=== PATIENT | male | born 1940 | race Caucasian/White ===

== ENCOUNTER 2021-03-30 12:09 | Inpatient (IN) | payer MEDICARE, OTHER ==
[2021-03-30] MEDS ORDERED: Polyethylene Glycol 3350 Powder 17 GM Packet PO PRN (14:49)
[2021-03-30] MEDS: Acetaminophen/oxyCODONE 325-5 MG Tab PO PRN ×2 (15:20→21:17)
--- NOTE | 2021-03-30 15:28 | PCM.HP.2 ---
H&P History of Present Illness - General Date of Service: 03/30/21 Admit Problem/Dx: Admission Diagnosis/Problem Admission Diagnosis/Problem Weakness Source of Information: Patient, Old Records, Provider History Limitations: Reports: No Limitations - History of Present Illness Initial Comments - Free Text/Narative: Breezy is POD#5 from triple cardiac bypass surgery with Dr Isma GODINEZ at [facility] on 03/25. He had an abnormal stress test on 03/13/2021. He had multivessel coronary artery disease involving distal left main, occluded LAD, high-grade left circumflex and 90% stenosis of mid RCA. He was extubated shortly after surgery. Mediastinal chest tubes were removed POD#1, pleural chest tubes removed when there was minimal drainage. He progressed well with therapy at [facility], and presents today for swing bed admission. He had Aspirin, Lasix, Potassium, Metoprolol added. His metformin was increased to 1000 mg bid and Lisinopril changed to 5 mg daily. His sugars in [place] were between 150-200. His vitals were stable at discharge. Labs 03/27: WBC 12.2, Hgb 11.1, Plts 124, 03/30: Na 136, K 3.6, Cl 102, CO2 28, BUN 17, Cr 0.71, Gluc 170. CXR 03/28: Expected po stoperative changes post median sternotomy. Left retrocardiac atelectasis/consolidation. Small left pleural effusion. Last ECHO 03/14/21: EF 45-50%, Apical dyskinesis, lateral wall hypokinetic, mild aortic valve calcification. Normal right ventricle systolic function. CODE STATUS: FULL. Middle Chest Pain Score (Numeric/FACES): 7 - Related Data Allergies/Adverse Reactions: Allergies Allergy/AdvReac Type Severity Reaction Status Date / Time No Known Allergies Allergy Verified 04/22/14 07:29 Home Medications: Home Meds RX: Pyridostigmine [place] [Mestinon] 60 mg PO TID PRN 04/19/14 [History] RX: azaTHIOprine [Azathioprine] 100 mg PO DAILY 04/19/14 [History] Acetaminophen [Tylenol Extra Strength] 500 mg PO Q4H PRN 03/30/21 [History] Acetaminophen/oxyCODONE [Percocet 325-5 MG] 1 tab PO Q6H PRN 03/30/21 [History] Furosemide [Lasix] 40 mg PO BID@08,14 03/30/21 [History] Metoprolol Tartrate [Lopressor] 12.5 mg PO BID 03/30/21 [History] RX: Aspirin 81 mg PO DAILY 03/30/21 [History] RX: Azelastine [Optivar 0.05% Ophth Soln] 1 drop EYEBOTH BID 03/30/21 [History] RX: Cyanocobalamin (Vitamin B-12) [Vitamin B-12] 1,000 mcg PO DAILY 03/30/21 [History] RX: Pioglitazone [Actos] 15 mg PO DAILY 03/30/21 [History] RX: Potassium Chloride 20 meq PO BIDMEALS 03/30/21 [History] Tafluprost/Pf [Zioptan 0.0015% Eye Drops] 1 drop EYERT BEDTIME 03/30/21 [History] atorvaSTATin Calcium [Lipitor] 40 mg PO WITHDINNER 03/30/21 [History] lisinopriL [Lisinopril] 5 mg PO DAILY 03/30/21 [History] metFORMIN HCl [Metformin ER Gastric] 1,000 mg PO BIDMEALS 03/30/21 [History] Past Medical History HEENT History: Reports: Hard of Hearing, Macular Degeneration Cardiovascular History: Reports: [place] Other Cardiovascular History: [place] in 1977 Respiratory History: Reports: Sleep Apnea Other Respiratory History: uses CPAP machine Musculoskeletal History: Reports: Other (See Below) Other Musculoskeletal History: hx of arthritis, knees and hips Endocrine/Metabolic History: Reports: Diabetes, Type II Other Dermatologic History: dry itching to varying parts of body at different times--varies - Past Surgical History HEENT Surgical History: Reports: Cataract Surgery Cardiovascular Surgical History: Reports: Coronary Artery Bypass Respiratory Surgical History: Reports: None Other GI Surgeries/Procedures: hernia repair as a child Endocrine Surgical History: Reports: None Musculoskeletal Surgical History: Reports: None Dermatological Surgical History: Reports: None Social & Family History - Family History Family Medical History: No Pertinent Family History H&P Review of Systems - Review of Systems: Review Of Systems: See Below General: Reports: Weakness. Denies: Fever, Chills HEENT: Reports: No Symptoms Pulmonary: Reports: Cough. Denies: Shortness of Breath Cardiovascular: Reports: Chest Pain (from surgery, sternal incision, mediastinal chest tube sites(2)), Edema (BLE) Gastrointestinal: Reports: No Symptoms Genitourinary: Reports: No Symptoms Skin: Reports: Wound (sternal site, chest tube site(2), L saphenous vein site(2)) Psychiatric: Reports: No Symptoms Hematologic/Lymphatic: Reports: Anemia, Easy Bleeding, Easy Bruising Exam - Exam Exam: See Below - Vital Signs Vital Signs: Last Vital Signs Temp 97.6 F 03/30/21 14:09 Pulse 79 03/30/21 14:09 Resp 16 03/30/21 14:09 BP 125/61 03/30/21 14:09 Pulse Ox 97 03/30/21 14:09 Weight: 271 lb 3 oz - Exam Quality Assessment: No: Supplemental Oxygen, Central Line/PICC, Urinary Catheter General: Alert, Oriented, Cooperative. No: Mild Distress HEENT: PERRLA, Conjunctiva Clear, EOMI, Hearing Intact, Mucosa Moist & [place] Neck: Trachea Midline Lungs: Clear to Auscultation, Normal Respiratory Effort, Decreased Breath Sounds (RLL, LLL), Crackles (left, fine). No: Wheezing Cardiovascular: Regular Rate, Regular Rhythm, Other (Sternal incision: C/D/I, 2 mediastinal chest tube sites: sutures in place, C/D/I) GI/Abdominal Exam: Normal Bowel Sounds, Soft, Non-Tender, No Distention. No: Guarding, Rigid, Rebound (Male) Exam: Deferred Rectal (Males) Exam: Deferred Extremities: Normal Capillary Refill, Pedal Edema (2+ BLE, TEDS on) Peripheral Pulses: 1+: Posterior Tibial (L), Posterior Tibial (R), Dorsalis Pedis (L), Dorsalis Pedis (R), 2+: Radial (L), Radial (R) Skin: Incision (Sternal, mediastinal chest tube site(2), L saphenous vein site(2)) Neurological: Cranial Nerves Intact, Normal Speech, Normal Tone Psychiatric: Normal Affect, Normal Mood - Patient Data Lab Results Last 24 hrs: Labs 03/27: WBC 12.2, Hgb 11.1, Plts 124, 03/30: Na 136, K 3.6, Cl 102, CO2 28, BUN 17, Cr 0.71, Gluc 170. Imaging Impressions Last 24 hrs: CXR 03/28: Expected postoperative changes post median sternotomy. Left retrocardiac atelectasis/consolidation. Small left pleural effusion. Last ECHO 03/14/21: EF 45-50%, Apical dyskinesis, lateral wall hypokinetic, mild aortic valve calcification. Normal right ventricle systolic function. Sepsis Event Note - Evaluation Sepsis Screening Result: No Definite Risk - Focused Exam Vital Signs: Vital Signs Temp Pulse Resp BP Pulse Ox 03/30/21 14:09 97.6 F 79 16 125/61 97 *Q Meaningful Use (ADM) - VTE *Q VTE Mechanical Contraindications *Q: At Risk for Falls VTE Pharmacological Contraindications *Q: Risk of Bleeding - VTE Risk Assess *Q Each Risk Factor Represents 1 Point: History of prior major surgery less than 1 month Total Score 1 Point Risk Factors: 1 Each Risk Factor Represents 2 Points: Major surgery greater than 45 minutes Total Score 2 Point Risk Factors: 2 Each Risk Factor Represents 3 Points: Age 75 Years or Greater Total Score 3 Point Risk Factors: 3 Each Risk Factor Represents 5 Points: None Total Score 5 Point Risk Factors: 0 Venous Thromboembolism Risk Factor Score *Q: 6 - Problem List (1) Weakness SNOMED Code(s): 56034032 ICD Code: R53.1 - WEAKNESS Status: Acute Current Visit: Yes (2) S/P CABG x 3 SNOMED Code(s): 373354599, 900488810, 146324604 ICD Code: Z95.1 - PRESENCE OF AORTOCORONARY BYPASS GRAFT Status: Acute Current Visit: Yes Onset Date: ~03/25/21 (3) Coronary artery disease SNOMED Code(s): 11078926 ICD Code: I25.10 - ATHSCL HEART DISEASE OF [place] CORONARY ARTERY W/O ANG PCTRS Status: Chronic Current Visit: Yes (4) Controlled type 2 diabetes with neuropathy SNOMED Code(s): 30747167, 473791168 ICD Code: E11.40 - TYPE 2 DIABETES MELLITUS WITH DIABETIC NEUROPATHY, UNSP Status: Chronic Current Visit: Yes (5) Hypertension associated with diabetes SNOMED Code(s): 35812997 ICD Code: E11.59 - TYPE 2 DIABETES MELLITUS WITH OTH CIRCULATORY COMPLICATIO NS; I15.2 - HYPERTENSION SECONDARY TO ENDOCRINE DISORDERS Status: Chronic Current Visit: Yes (6) HOLLY (obstructive sleep apnea) SNOMED Code(s): 82362533 ICD Code: G47.33 - OBSTRUCTIVE SLEEP APNEA (ADULT) (PEDIATRIC) Status: Acute Current Visit: Yes (7) Primary open angle glaucoma (POAG) of both eyes, moderate stage SNOMED Code(s): 07334483, 081947130, 742264720 ICD Code: H40.1132 - PRIMARY OPEN-ANGLE GLAUCOMA, BILATERAL, MODERATE STAGE Status: Chronic Current Visit: Yes (8) Ocular myasthenia gravis SNOMED Code(s): 525940281 ICD Code: G70.00 - MYASTHENIA GRAVIS WITHOUT (ACUTE) EXACERBATION Status: Chronic Current Visit: Yes (9) Morbid obesity with BMI of 45.0-49.9, adult SNOMED Code(s): 962302002, 70700480285394 ICD Code: E66.01 - MORBID (SEVERE) OBESITY DUE TO EXCESS CALORIES; Z68.42 - BODY MASS INDEX [BMI] 45.0-49.9, ADULT Status: Chronic Current Visit: Yes Problem List Initiated/Reviewed/Updated: Yes Orders Last 24hrs: Active Orders 24 hr Category Date Time Status Patient Status [ADT] Routine ADT 03/30/21 14:43 Active Glucose [Blood Glucose Check, Bedside] [RC] BIDAC Care 03/30/21 14:53 Active Height and Weight [RC] DAILY Care 03/30/21 14:44 Active Oxygen Therapy [RC] PRN Care 03/30/21 14:43 Active Up With Assistance [RC] ASDIRECTED Care 03/30/21 14:43 Active Up to Chair [RC] ASDIRECTED Care 03/30/21 14:43 Active VTE/DVT Education [RC] 08 Care 03/30/21 14:43 Active Vital Signs [RC] 08 Care 03/30/21 14:43 Active OT Evaluation and Treatment [CONS] Routine Cons 03/30/21 14:43 Active PT Evaluation and Treatment [CONS] Routine Cons 03/30/21 14:43 Active 2 Gram Sodium Diet [DIET] Diet 03/30/21 Dinner Active Consistent Carbohydrate Diet [DIET] Diet 03/30/21 Dinner Active Acetaminophen [Tylenol Extra Strength] Med 03/30/21 14:47 Active 500 mg PO Q4H PRN Acetaminophen/oxyCODONE [Percocet 325-5 MG] Med 03/30/21 14:47 Active 1 tab PO Q6H PRN Aspirin Med 03/31/21 09:00 Active 81 mg PO DAILY Azelastine [Optivar 0.05% Ophth Soln] Med 03/30/21 21:00 Active 0 ml EYEBOTH BID Cyanocobalamin (Vitamin B12) [Vitamin B12] Med 03/31/21 09:00 Active 1,000 mcg PO DAILY Docusate Sodium/Sennosides [Senna Plus] Med 03/31/21 09:00 Active 1 tab PO DAILY Furosemide [Lasix] Med 03/30/21 15:00 Active 40 mg PO BID@08,14 Metoprolol Tartrate [Lopressor] Med 03/30/21 21:00 Active 12.5 mg PO BID Pioglitazone [Actos] Med 03/31/21 09:00 Active 15 mg PO DAILY Potassium Chloride [Klor-Con M20] Med 03/30/21 18:00 Active 20 meq PO BIDMEALS Pyridostigmine [Mestinon] Med 03/30/21 14:47 Active 60 mg PO TID PRN Tafluprost/Pf [Zioptan 0.0015% Eye Drops] Med 03/30/21 21:00 Ordered 1 drop EYERT BEDTIME atorvaSTATin [Lipitor] Med 03/30/21 18:00 Active 40 mg PO WITHDINNER azaTHIOprine [Imuran] Med 03/31/21 09:00 Active 100 mg PO DAILY lisinopriL [Prinivil] Med 03/31/21 09:00 Active 5 mg PO DAILY metFORMIN [Glucophage XR] Med 03/30/21 18:00 Active 1,000 mg PO BIDMEALS polyethylene glycoL 3350 [MiraLAX] Med 03/30/21 14:49 Active 17 gm PO DAILY PRN Antiembolic Hose [OM.PC] Per Unit Routine Oth 03/30/21 14:44 Ordered Resuscitation Status Routine Resus Stat 03/30/21 14:43 Ordered Medication Orders Acetaminophen (Acetaminophen 500 Mg Tab) 500 mg PO Q4H PRN PRN Reason: mild pain Aspirin (Aspirin 81 Mg Tab.Chew) 81 mg PO DAILY [facility] Atorvastatin Calcium (Atorvastatin 40 Mg Tab) 40 mg PO WITHDINNER [facility] Azathioprine (Azathioprine 50 Mg Tab) 100 mg PO DAILY [facility] Azelastine HCl (Azelastine 0.05% Ophth Soln 6 Ml Bottle) 0 ml EYEBOTH BID [facility] Cyanocobalamin (Cyanocobalamin (Vitamin B12) 1,000 Mcg Tab) 1,000 mcg PO DAILY [facility] Furosemide (Furosemide 40 Mg Tab) 40 mg PO BID@08,14 [facility] Lisinopril (Lisinopril 5 Mg Tab) 5 mg PO DAILY [facility] Metformin HCl (Metformin 500 Mg Tab.Er) 1,000 mg PO BIDMEALS [facility] Metoprolol Tartrate (Metoprolol Tartrate 25 Mg Tab) 12.5 mg PO BID [facility] Non-Formulary Medication (Tafluprost/Pf [Zioptan 0.0015% Eye Drops]) 1 drop EYERT BEDTIME [facility] Oxycodone/Acetaminophen (Acetaminophen/Oxycodone 325-5 Mg Tab) 1 tab PO Q6H PRN PRN Reason: severe pain Pioglitazone HCl (Pioglitazone 30 Mg Tab) 15 mg PO DAILY [facility] Polyethylene Glycol (Polyethylene Glycol 3350 Powder 17 Gm Packet) 17 gm PO DAILY PRN PRN Reason: Constipation Potassium Chloride (Potassium Chloride 20 Meq Tab.Er) 20 meq PO BIDMEALS [facility] Pyridostigmine [place] (Pyridostigmine 60 Mg Tab) 60 mg PO TID PRN PRN Reason: double vision, weakness Senna/Docusate Sodium (Docusate Sodium/Sennosides 50-8.6 Mg Tab) 1 tab PO DAILY [facility] Assessment/Plan Comment:: 1. Admit to swing bed for rehab services POD#5 s/p CABG x 3, weakness. 2. S/p CABG, POD#5/weakness: No wound care ordered by CV services, open to air. Follow up with CV on 04/06 230 pm for suture removal. If any drainage advised to place gauze and secure with tape and notify Dr Ashby office. Continue Aspirin, Lisinopril, Metoprolol, Atorvastatin, Lasix, Potassium. PT/OT evaluate & treat. Daily weights. BMP morning of 04/06, copy to go with patient for Dr Ashby appt. 3. DM: Consistent carb diet, 2 gm salt diet. Glucose checks BIDAC. Continue Metformin 1000 mg bid, Actos 15 mg daily. 4. Diet: 2 gm Na, Consistent Carb. 5. Activity: up to chair & with assistance. 6. DVT: TEDS BLE. Aspirin 81 mg daily per CV. 7. CODE STATUS: FULL. 8. Disposition: Home once meets therapy goals, cardiac rehab on discharge. - Mortality Measure Prognosis:: Good
[2021-03-30] MEDS: Furosemide 40 MG Tab PO SCH (15:48)
[2021-03-30] MEDS: metFORMIN 500 MG Tab.ER PO SCH (18:12)
[2021-03-30] MEDS: atorvaSTATin 40 MG Tab PO SCH (18:14)
[2021-03-30] MEDS: Potassium Chloride 20 MEQ Tab.ER PO SCH (18:14)
[2021-03-30] MEDS: Latanoprost 0.005% Ophth Soln 2.5 ML Bottle EYERT SCH (20:04)
[2021-03-30] MEDS ORDERED: [UNRECOGNIZED DRUG - OTHER] EYERT SCH (21:00)
[2021-03-30] MEDS: Azelastine 0.05% Ophth Soln 6 ML Bottle EYEBOTH SCH (21:10)
[2021-03-30] MEDS: Metoprolol Tartrate 25 MG Tab PO SCH (21:13)
[2021-03-31] MEDS: Acetaminophen/oxyCODONE 325-5 MG Tab PO PRN ×4 (03:41→21:16)
[2021-03-31] MEDS: metFORMIN 500 MG Tab.ER PO SCH ×2 (08:01→17:54)
[2021-03-31] MEDS: Potassium Chloride 20 MEQ Tab.ER PO SCH ×2 (08:02→17:52)
[2021-03-31] MEDS: Furosemide 40 MG Tab PO SCH ×2 (08:02→14:54)
[2021-03-31] MEDS: Aspirin 81 MG Tab.Chew PO SCH (08:03)
[2021-03-31] MEDS: Metoprolol Tartrate 25 MG Tab PO SCH ×2 (08:05→20:57)
[2021-03-31] MEDS: Azelastine 0.05% Ophth Soln 6 ML Bottle EYEBOTH SCH ×2 (08:05→20:58)
[2021-03-31] MEDS: Lisinopril 5 MG Tab PO SCH (08:06)
[2021-03-31] MEDS: Cyanocobalamin (Vitamin B12) 1,000 MCG Tab PO SCH (08:07)
[2021-03-31] MEDS: atorvaSTATin 40 MG Tab PO SCH (17:53)
[2021-03-31] MEDS: Latanoprost 0.005% Ophth Soln 2.5 ML Bottle EYERT SCH (21:15)
[2021-04-01] MEDS: Acetaminophen/oxyCODONE 325-5 MG Tab PO PRN ×3 (03:24→17:42)
[2021-04-01] MEDS: metFORMIN 500 MG Tab.ER PO SCH ×2 (08:21→17:51)
[2021-04-01] MEDS: Potassium Chloride 20 MEQ Tab.ER PO SCH ×2 (08:22→17:50)
[2021-04-01] MEDS: Furosemide 40 MG Tab PO SCH ×2 (08:22→13:59)
[2021-04-01] MEDS: Aspirin 81 MG Tab.Chew PO SCH (08:23)
[2021-04-01] MEDS: Azelastine 0.05% Ophth Soln 6 ML Bottle EYEBOTH SCH ×2 (08:25→20:13)
[2021-04-01] MEDS: Lisinopril 5 MG Tab PO SCH (08:25)
[2021-04-01] MEDS: Metoprolol Tartrate 25 MG Tab PO SCH ×2 (08:27→20:15)
[2021-04-01] MEDS: Cyanocobalamin (Vitamin B12) 1,000 MCG Tab PO SCH (08:28)
[2021-04-01] MEDS: atorvaSTATin 40 MG Tab PO SCH (17:50)
[2021-04-01] MEDS: Latanoprost 0.005% Ophth Soln 2.5 ML Bottle EYERT SCH (20:14)
[2021-04-01] MEDS: Acetaminophen 500 MG Tab PO PRN (21:30)
[2021-04-02] MEDS: Acetaminophen 500 MG Tab PO PRN (01:04)
[2021-04-02] MEDS: Acetaminophen/oxyCODONE 325-5 MG Tab PO PRN ×3 (03:30→21:27)
[2021-04-02] MEDS: Cyanocobalamin (Vitamin B12) 1,000 MCG Tab PO SCH (09:26)
[2021-04-02] MEDS: Aspirin 81 MG Tab.Chew PO SCH (09:26)
[2021-04-02] MEDS: Potassium Chloride 20 MEQ Tab.ER PO SCH ×2 (09:26→18:47)
[2021-04-02] MEDS: Furosemide 40 MG Tab PO SCH ×2 (09:27→18:41)
[2021-04-02] MEDS: metFORMIN 500 MG Tab.ER PO SCH ×2 (09:27→18:42)
[2021-04-02] MEDS: Azelastine 0.05% Ophth Soln 6 ML Bottle EYEBOTH SCH ×2 (09:29→20:09)
[2021-04-02] MEDS: Lisinopril 5 MG Tab PO SCH (09:31)
[2021-04-02] MEDS: Metoprolol Tartrate 25 MG Tab PO SCH ×2 (09:32→20:09)
[2021-04-02] MEDS: atorvaSTATin 40 MG Tab PO SCH (18:47)
[2021-04-02] MEDS: Latanoprost 0.005% Ophth Soln 2.5 ML Bottle EYERT SCH (20:09)
[2021-04-03] MEDS: Acetaminophen/oxyCODONE 325-5 MG Tab PO PRN ×2 (03:30→09:39)
[2021-04-03] MEDS: metFORMIN 500 MG Tab.ER PO SCH (08:16)
[2021-04-03] MEDS: Potassium Chloride 20 MEQ Tab.ER PO SCH (08:17)
[2021-04-03] MEDS: Aspirin 81 MG Tab.Chew PO SCH (08:18)
[2021-04-03] MEDS: Azelastine 0.05% Ophth Soln 6 ML Bottle EYEBOTH SCH (08:18)
[2021-04-03] MEDS: Cyanocobalamin (Vitamin B12) 1,000 MCG Tab PO SCH (08:18)
[2021-04-03] MEDS: Metoprolol Tartrate 25 MG Tab PO SCH (08:30)
[2021-04-03] MEDS: Lisinopril 5 MG Tab PO SCH (08:31)
[2021-04-03 08:32] VITALS: BP 109/59; PULSE 69
[2021-04-03] MEDS: Furosemide 40 MG Tab PO SCH (08:32)
--- NOTE | 2021-04-03 09:16 | PCM.DCSUM1 ---
Discharge Summary - Hospital Course Brief History: Generald of 81-year-old male admitted after bypass surgery. Attending rehabilitation, and physical therapy and is ready to go home tdoay Diagnosis: Stroke: No - Discharge Data Discharge Date: 04/03/21 Discharge Disposition: Home, Self-Care 01 Condition: Good - Referral to Home Health Primary Care Physician: Rio Nunez MD - Patient Summary/Data Consults: Consultations 03/30/21 14:43 OT Evaluation and Treatment [CONS] Routine Please Evaluate and Treat. OT Reason for Consult: ADL's This query below is only for informational purposes and is not editable. PT Evaluation and Treatment [CONS] Routine Please Evaluate and Treat. PT Reason for Consult: Strengthening Special Instructions: s/p CABG This query below is only for informational purposes and is not editable. - Discharge Plan Prescriptions/Med Rec: Furosemide [Lasix] 40 mg PO BID@ #60 lisinopriL [Lisinopril] 5 mg PO DAILY #30 Metoprolol Tartrate [Lopressor] 12.5 mg PO BID #60 metFORMIN HCl [Metformin ER Gastric] 1,000 mg PO BIDMEALS #60 Acetaminophen/oxyCODONE [Percocet 325-5 MG] 1 each PO TID PRN #30 tab PRN Reason: Breakthrough Pain Potassium Chloride 20 meq PO BIDMEALS #60 Home Medications: Home Meds Pyridostigmine [place] [Mestinon] 60 mg PO TID PRN 04/19/14 [History] azaTHIOprine [Azathioprine] 100 mg PO DAILY 04/19/14 [History] Acetaminophen [Tylenol Extra Strength] 500 mg PO Q4H PRN 03/30/21 [History] Aspirin 81 mg PO DAILY 03/30/21 [History] Azelastine [Optivar 0.05% Ophth Soln] 1 drop EYEBOTH BID 03/30/21 [History] Cyanocobalamin (Vitamin B-12) [Vitamin B-12] 1,000 mcg PO DAILY 03/30/21 [History] Pioglitazone [Actos] 15 mg PO DAILY 03/30/21 [History] Tafluprost/Pf [Zioptan 0.0015% Eye Drops] 1 drop EYERT BEDTIME 03/30/21 [History] atorvaSTATin Calcium [Lipitor] 40 mg PO WITHDINNER 03/30/21 [History] Acetaminophen/oxyCODONE [Percocet 325-5 MG] 1 each PO TID PRN #30 tab 04/03/21 [Rx] Furosemide [Lasix] 40 mg PO BID@08,14 #60 04/03/21 [Rx] Metoprolol Tartrate [Lopressor] 12.5 mg PO BID #60 04/03/21 [Rx] Potassium Chloride 20 meq PO BIDMEALS #60 04/03/21 [Rx] lisinopriL [Lisinopril] 5 mg PO DAILY #30 04/03/21 [Rx] metFORMIN HCl [Metformin ER Gastric] 1,000 mg PO BIDMEALS #60 04/03/21 [Rx] - Discharge Summary/Plan Comment DC Time >30 min.: Yes Total # of Minutes for Discharge Time: Discharge planning,summary,Meds prescription - General Info Date of Service: 04/03/21 Functional Status: Reports: Pain Controlled, Tolerating Diet - Review of Systems General: Reports: No Symptoms HEENT: Reports: No Symptoms Pulmonary: Reports: No Symptoms Cardiovascular: Reports: No Symptoms Gastrointestinal: Reports: No Symptoms - Patient Data Vitals - Most Recent: Last Vital Signs Temp 98.5 F 04/02/21 20:00 Pulse 69 04/03/21 08:30 Resp 18 04/02/21 20:00 BP 109/59 L 04/03/21 08:31 Pulse Ox 97 04/02/21 20:00 Weight - Most Recent: 119.068 kg Lab Results - Last 24 hrs: Laboratory Results - last 24 hr 04/02/21 04/03/21 Range/Units 18:46 06:45 POC Glucose 178 H 158 H (80-116) mg/dL Med Orders - Current: Current Medications Acetaminophen (Acetaminophen 500 Mg Tab) 500 mg PO Q4H PRN PRN Reason: mild pain Last Admin: 04/02/21 01:04 Dose: 500 mg Documented by: Aspirin (Aspirin 81 Mg Tab.Chew) 81 mg PO DAILY [facility] Last Admin: 04/03/21 08:18 Dose: 81 mg Documented by: Atorvastatin Calcium (Atorvastatin 40 Mg Tab) 40 mg PO WITHDINNER [facility] Last Admin: 04/02/21 18:47 Dose: 40 mg Documented by: Azathioprine (Azathioprine 50 Mg Tab) 100 mg PO DAILY [facility] Last Admin: 04/03/21 08:18 Dose: 100 mg Documented by: Azelastine HCl (Azelastine 0.05% Ophth Soln 6 Ml Bottle) 0 ml EYEBOTH BID [facility] Last Admin: 04/03/21 08:18 Dose: 1 drop Documented by: Cyanocobalamin (Cyanocobalamin (Vitamin B12) 1,000 Mcg Tab) 1,000 mcg PO DAILY [facility] Last Admin: 04/03/21 08:18 Dose: 1,000 mcg Documented by: Furosemide (Furosemide 40 Mg Tab) 40 mg PO BID@14 [facility] Last Admin: 04/03/21 08:32 Dose: 40 mg Documented by: Latanoprost (Latanoprost 0.005% Ophth Soln 2.5 Ml Bottle) 0 ml EYERT BEDTIME [facility] Last Admin: 04/02/21 20:09 Dose: 1 drop Documented by: Lisinopril (Lisinopril 5 Mg Tab) 5 mg PO DAILY [facility] Last Admin: 04/03/21 08:31 Dose: 5 mg Documented by: Metformin HCl (Metformin 500 Mg Tab.Er) 1,000 mg PO BIDMEALS [facility] Last Admin: 04/03/21 08:16 Dose: 1,000 mg Documented by: Metoprolol Tartrate (Metoprolol Tartrate 25 Mg Tab) 12.5 mg PO BID [facility] Last Admin: 04/03/21 08:30 Dose: 12.5 mg Documented by: Non-Formulary Medication (Tafluprost/Pf [Zioptan 0.0015% Eye Drops]) 1 drop EYERT BEDTIME [facility] Oxycodone/Acetaminophen (Acetaminophen/Oxycodone 325-5 Mg Tab) 1 tab PO Q6H PRN PRN Reason: severe pain Last Admin: 04/03/21 03:30 Dose: 1 tab Documented by: Pioglitazone HCl (Pioglitazone 30 Mg Tab) 15 mg PO DAILY [facility] Last Admin: 04/03/21 08:17 Dose: 15 mg Documented by: Polyethylene Glycol (Polyethylene Glycol 3350 Powder 17 Gm Packet) 17 gm PO DAILY PRN PRN Reason: Constipation Last Admin: 03/30/21 20:00 Dose: 17 gm Documented by: Potassium Chloride (Potassium Chloride 20 Meq Tab.Er) 20 meq PO BIDMEALS [facility] Last Admin: 04/03/21 08:17 Dose: 20 meq Documented by: Pyridostigmine [place] (Pyridostigmine 60 Mg Tab) 60 mg PO TID PRN PRN Reason: double vision, weakness Senna/Docusate Sodium (Docusate Sodium/Sennosides 50-8.6 Mg Tab) 1 tab PO DAILY [facility] Last Admin: 04/03/21 08:18 Dose: 1 tab Documented by: - Exam General: Reports: Alert, Oriented Lungs: Reports: Clear to Auscultation Cardiovascular: Reports: Regular Rate Neurological: Reports: No New Focal Deficit Psy/Mental Status: Reports: Alert *Q Meaningful Use (DIS) - VTE *Q VTE Mechanical Contraindications *Q: At Risk for Falls VTE Pharmacological Contraindications *Q: Risk of Bleeding
== END 2021-04-03 12:30 | disposition home or self-care (01) | DRG 948 ==
LOC: FB.MS 13:50
PROVIDERS: ADMIT Family Medicine; ATTEND Family Medicine
DX: R53.1 Weakness (principal); Z68.42 Body mass index [BMI] 45.0-49.9, adult; I25.10 Atherosclerotic heart disease of native coronary artery without angina pectoris; E11.40 Type 2 diabetes mellitus with diabetic neuropathy, unspecified; I10 Essential (primary) hypertension; G47.33 Obstructive sleep apnea (adult) (pediatric); H40.1132 Primary open-angle glaucoma, bilateral, moderate stage; G70.00 Myasthenia gravis without (acute) exacerbation; E66.01 Morbid (severe) obesity due to excess calories; Z95.1 Presence of aortocoronary bypass graft; Z79.82 Long term (current) use of aspirin
CPT/HCPCS: 82947; 97116-GP; 97161-GP; 97165-GO; 97530-GO; 97530-GP; 97535-GO; A9270-GY; J7500